=== PATIENT | female | born 1975 ===

== ENCOUNTER 2022-02-03 07:36 | Emergency (ER) | payer BC ==
[2022-02-03] MEDS ORDERED: HYDROmorphone 1 MG/ML Syringe IVPUSH ONE (07:50)
[2022-02-03] MEDS ORDERED: Lactated Ringers 1,000 ML IV ONE (07:50)
[2022-02-03] MEDS ORDERED: Ondansetron 4 MG/2 ML SDV IVPUSH ONE (07:50)
[2022-02-03 08:19] LABS: ANION GAP 15.3 mEq/L (7-13); CHLORIDE,CL 102 mmol/L (98-107); SODIUM,NA 140 mmol/L (136-145)
[2022-02-03 08:33] LABS: ESTIMATED GFR 69 mL/min (>=60)
[2022-02-03] MEDS ORDERED: Sodium Chloride 0.9% 1,000 ML IV ONE (08:41)
[2022-02-03 08:55] LABS: AMPHETAMINES,URINE NEGATIVE (NEGATIVE); BARBITURATES,URINE NEGATIVE (NEGATIVE); BENZODIAZEPINE,URINE NEGATIVE (NEGATIVE); MDMA (ECSTASY), URINE NEGATIVE (NEGATIVE); METHADONE,URINE NEGATIVE (NEGATIVE); METHAMPHETAMINES,URINE NEGATIVE (NEGATIVE); OPIATES,URINE POSITIVE (NEGATIVE); OXYCODONE,URINE NEGATIVE (NEGATIVE); PHENCYCLIDINE,URINE NEGATIVE (NEGATIVE); TCA,URINE NEGATIVE (NEGATIVE)
[2022-02-03] MEDS ORDERED: Iopamidol 612 MG/ML 100 ML Bottle IVPUSH ONE (10:11)
[2022-02-03] MEDS ORDERED: Polyethylene Glycol 3350 Powder 17 GM Packet PO ONE (10:45)
[2022-02-03] MEDS ORDERED: Ketorolac 30 MG/ML SDV IVPUSH ONE (11:04)
[2022-02-03] MEDS ORDERED: Metoclopramide 10 MG/2 ML SDV IVPUSH ONE (11:04)
== END 2022-02-03 11:20 | disposition home or self-care (01) ==
LOC: DL.ED 07:36
DX: K57.30 Diverticulosis of large intestine without perforation or abscess without bleeding (principal); K76.89 Other specified diseases of liver
CPT/HCPCS: 36415; 74019; 74177; 80053; 80305; 80307; 81003; 81025; 82150; 83605; 83690; 83735; 85025; 86140; 96361; 96374; 96375; 99284; A9270; J1170; J1885; J2405; J2765; J7030; J7120; Q9967